=== PATIENT | male | born 2000 | race Caucasian/White ===

== ENCOUNTER 2021-10-17 03:59 | Emergency (ER) | payer MEDICAID ==
[~2021-10-17] VITALS: Ht 182.9 cm; Wt 90.7 kg
[2021-10-17 04:04] VITALS: BP 125/82
[2021-10-17] MEDS: IBUPROFEN 400 MG TAB PO ONE (04:36)
[2021-10-17] MEDS: ACETAMINOPHEN 325 MG TAB PO ONE (04:36)
[2021-10-17] MEDS ORDERED: NAPR-54 PO (05:03)
[2021-10-17 05:09] VITALS: BP 125/82
== END 2021-10-17 05:08 | disposition home or self-care (01) ==
LOC: MED 03:59
DX: R07.89 Other chest pain (principal); M79.10 Myalgia, unspecified site
CPT/HCPCS: 71045; 99283; Q0092